=== PATIENT | female | born 1985 | race African-American/Black ===

== ENCOUNTER 2017-03-22 17:03 | Emergency (ER) | payer MEDICAID ==
[~2017-03-22] VITALS: Ht 160 cm; Wt 57.0 kg
[2017-03-22] MEDS ORDERED: IBUPROFEN 600MG TABLET PO ONE (19:30)
[2017-03-22 20:57] LABS: CLARITY URINE CLEAR (CLEAR); COLOR URINE YELLOW (YELLOW); KETONES URINE TRACE (NEGATIVE); LEUKOCYTE ESTERASE URINE 1+ (NEGATIVE); NITRITE URINE NEGATIVE (NEGATIVE); OCCULT BLOOD URINE TRACE (NEGATIVE); PROTEIN URINE 1+ (NEGATIVE); SPECIFIC GRAVITY URINE 1.023 (1.005-1.030); UROBILINOGEN URINE 0.2 E.U./dL (0.2-1.0)
[2017-03-22] MEDS ORDERED: OSELTAMIVIR 75MG CAPSULE PO ONE (21:30)
[2017-03-22] MEDS ORDERED: AZITHROMYCIN 500 MG TABLET PO SCH (21:30)
[2017-03-22 21:45] VITALS: BP 132/86
[2017-03-27 09:16] LABS: CHLAMYDIA TRACHOMATIS NAA Negative (Negative); NEISSERIA GONORRHOEAE NAA Negative (Negative)
== END 2017-03-22 22:00 | disposition home or self-care (01) ==
LOC: ER 17:03
DX: J10.1 Influenza due to other identified influenza virus with other respiratory manifestations (principal); N39.0 Urinary tract infection, site not specified
CPT/HCPCS: 71045; 81001; 87070; 87430; 87491; 87591; 87804; 99285; Z7610

== ENCOUNTER 2018-05-05 10:30 | Emergency (ER) | payer MEDICAID ==
[~2018-05-05] VITALS: Ht 160 cm; Wt 72.0 kg
[2018-05-05 12:33] VITALS: BP 94/56
== END 2018-05-05 15:52 | disposition home or self-care (01) ==
LOC: 8 EST LDRP 10:30 → UNDOADMOB 10:30 → ER 12:22 → EDSTATUS 12:22 → ER 15:52
DX: O26.893 Other specified pregnancy related conditions, third trimester (principal); J06.9 Acute upper respiratory infection, unspecified; Z3A.32 32 weeks gestation of pregnancy; Z88.0 Allergy status to penicillin; Z98.890 Other specified postprocedural states
CPT/HCPCS: 81025; 99281; 99282